=== PATIENT | male | born 1985 | race Caucasian/White ===

== ENCOUNTER 2017-01-07 16:01 | Emergency (ER) | payer SELFPAY | END 2017-01-07 18:35 | disposition left against medical advice (07) | LOC: ER 16:01 | PROC: 2W2TX4Z Dressing of Left Foot using Bandage (ICD-10-PCS; principal; 2017-01-07) | PROC: 2W2SX4Z Dressing of Right Foot using Bandage (ICD-10-PCS; 2017-01-07) | DX: T25.222A Burn of second degree of left foot, initial encounter (principal); T25.221A Burn of second degree of right foot, initial encounter; L03.116 Cellulitis of left lower limb; Z88.6 Allergy status to analgesic agent; F17.200 Nicotine dependence, unspecified, uncomplicated; X08.8XXA Exposure to other specified smoke, fire and flames, initial encounter | CPT/HCPCS: 80048; 85025; 99284; A9270-GY ==

== ENCOUNTER 2017-01-08 10:03 | Emergency (ER) | payer SELFPAY ==
[2017-01-08 08:45] LABS: BASOPHILS 0.3 %; BASOPHILS ABSOLUTE 0.02 10/3/uL (0.0-0.16); EOSINOPHILS 2.8 %; EOSINOPHILS ABSOLUTE 0.18 10/3/uL (0.0-0.53); HEMATOCRIT 41.6 % (40.0-51.0); HEMOGLOBIN 14.6 g/dL (13.6-17.8); IMMATURE GRANULOCYTES 0.2 %; IMMATURE GRANULOCYTES ABSOLUTE 0.01 10/3/uL (0.0-0.11); LYMPHOCYTES 12.5 %; LYMPHOCYTES ABSOLUTE 0.81 10/3/uL (0.67-4.30); MEAN CORPUS HGB CONC 35.1 g/dL (32.0-36.0); MEAN CORPUSCULAR HEMOGLOB 31.9 pg (26.0-34.0); MEAN CORPUSCULAR VOLUME 90.8 fL (80-100); MEAN PLATELET VOLUME 9.4 fL (9.2-13.0); MONOCYTES 14.2 %; MONOCYTES ABSOLUTE 0.92 10/3/uL (0.21-1.20); NEUTROPHILS ABSOLUTE 4.56 10/3/uL (2.02-8.40); PLATELET COUNT 249 10/3/uL (150-400); RBC DISTRIBUTION WIDTH 12.8 % (12.0-16.0); RED CELL COUNT 4.58 10/6/uL (4.7-6.1); WHITE BLOOD CELLS 6.5 10/3/uL (4.5-10.5)
[2017-01-08 08:46] LABS: MANUAL DIFF NO %
[2017-01-08 08:55] LABS: BUN (BLOOD UREA NITROGEN) 8 MG/DL (6-23); CALCIUM, SERUM 8.8 MG/DL (8.5-10.4); CHLORIDE, SERUM 107 MMOL/L (96-112); CO2 (CARBON DIOXIDE) 28 MMOL/L (24-34); CREATININE 0.77 MG/DL (0.70-1.30); GFR AFRICAN AMERICAN 141 ML/MIN (>=60); GFR NON AFRICAN AMERICAN 122 ML/MIN (>=60); GLUCOSE, SERUM 113 MG/DL (60-99); POTASSIUM, SERUM 3.9 MMOL/L (3.5-5.3); SODIUM, SERUM 140 MMOL/L (135-148)
[2017-01-09] MEDS ORDERED: DENIES (05:12)
[2017-01-09] MEDS ORDERED: CENTRUM PO (12:59)
[2017-01-09] MEDS ORDERED: ALKA-SELTZER PO (12:59)
[2017-01-09] MEDS ORDERED: PEPTO BISMOL LIQ1 ML PO (13:00)
[2017-01-09] MEDS ORDERED: OTC REFLUX MED PO (13:00)
[2017-01-09] MEDS ORDERED: NASONEX NAS (13:00)
== END 2017-01-08 13:13 | disposition home or self-care (01) ==
LOC: ER 10:03
PROVIDERS: Nurse Practitioner
PROC: 2W2TX4Z Dressing of Left Foot using Bandage (ICD-10-PCS; principal; 2017-01-08)
PROC: 2W2SX4Z Dressing of Right Foot using Bandage (ICD-10-PCS; 2017-01-08)
DX: T25.221A Burn of second degree of right foot, initial encounter (principal); T25.222A Burn of second degree of left foot, initial encounter; L03.116 Cellulitis of left lower limb; F17.200 Nicotine dependence, unspecified, uncomplicated; Z88.6 Allergy status to analgesic agent; X12.XXXA Contact with other hot fluids, initial encounter
CPT/HCPCS: 80048; 85025; 96374; 96375; 99284; A9270-GY; J1885

== ENCOUNTER 2017-01-09 04:16 | Inpatient (IN) | payer SELFPAY ==
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
[2017-01-09 04:03] LABS: BASOPHILS 0.6 %; BASOPHILS ABSOLUTE 0.04 10/3/uL (0.0-0.16); EOSINOPHILS 3.3 %; EOSINOPHILS ABSOLUTE 0.22 10/3/uL (0.0-0.53); ER CBC TAT 0 Hrs 03 Mins; HEMATOCRIT 39.3 % (40.0-51.0); HEMOGLOBIN 13.8 g/dL (13.6-17.8); IMMATURE GRANULOCYTES 0.1 %; IMMATURE GRANULOCYTES ABSOLUTE 0.01 10/3/uL (0.0-0.11); LYMPHOCYTES 13.2 %; LYMPHOCYTES ABSOLUTE 0.89 10/3/uL (0.67-4.30); MEAN CORPUS HGB CONC 35.1 g/dL (32.0-36.0); MEAN CORPUSCULAR HEMOGLOB 31.9 pg (26.0-34.0); MEAN CORPUSCULAR VOLUME 90.8 fL (80-100); MEAN PLATELET VOLUME 9.3 fL (9.2-13.0); MONOCYTES 16.3 %; NEUTROPHILS 66.5 %; NEUTROPHILS ABSOLUTE 4.47 10/3/uL (2.02-8.40); PLATELET COUNT 233 10/3/uL (150-400); RED CELL COUNT 4.33 10/6/uL (4.7-6.1); WHITE BLOOD CELLS 6.7 10/3/uL (4.5-10.5)
[2017-01-09 04:04] LABS: MANUAL DIFF NO %
[2017-01-09 04:16] LABS: BUN (BLOOD UREA NITROGEN) 11 MG/DL (6-23); CALCIUM, SERUM 8.7 MG/DL (8.5-10.4); CHLORIDE, SERUM 107 MMOL/L (96-112); CO2 (CARBON DIOXIDE) 27 MMOL/L (24-34); CREATININE 0.79 MG/DL (0.70-1.30); GFR AFRICAN AMERICAN 140 ML/MIN (>=60); GFR NON AFRICAN AMERICAN 120 ML/MIN (>=60); GLUCOSE, SERUM 110 MG/DL (60-99); POTASSIUM, SERUM 4.5 MMOL/L (3.5-5.3); SODIUM, SERUM 141 MMOL/L (135-148)
[2017-01-09] MEDS ORDERED: DENIES (05:12)
[2017-01-09 11:06] LABS: BASOPHILS 0.6 %; BASOPHILS ABSOLUTE 0.04 10/3/uL (0.0-0.16); EOSINOPHILS 2.9 %; EOSINOPHILS ABSOLUTE 0.18 10/3/uL (0.0-0.53); HEMATOCRIT 40.6 % (40.0-51.0); IMMATURE GRANULOCYTES 0.2 %; IMMATURE GRANULOCYTES ABSOLUTE 0.01 10/3/uL (0.0-0.11); LYMPHOCYTES 18.2 %; LYMPHOCYTES ABSOLUTE 1.13 10/3/uL (0.67-4.30); MEAN CORPUS HGB CONC 34.5 g/dL (32.0-36.0); MEAN CORPUSCULAR HEMOGLOB 31.6 pg (26.0-34.0); MEAN CORPUSCULAR VOLUME 91.6 fL (80-100); MEAN PLATELET VOLUME 9.5 fL (9.2-13.0); MONOCYTES 13.8 %; MONOCYTES ABSOLUTE 0.86 10/3/uL (0.21-1.20); NEUTROPHILS 64.3 %; NEUTROPHILS ABSOLUTE 3.99 10/3/uL (2.02-8.40); PLATELET COUNT 223 10/3/uL (150-400); RBC DISTRIBUTION WIDTH 13.2 % (12.0-16.0); RED CELL COUNT 4.43 10/6/uL (4.7-6.1); WHITE BLOOD CELLS 6.2 10/3/uL (4.5-10.5)
[2017-01-09 11:07] LABS: MANUAL DIFF NO %
[2017-01-09 11:19] LABS: BUN (BLOOD UREA NITROGEN) 8 MG/DL (6-23); CALCIUM, SERUM 8.5 MG/DL (8.5-10.4); CHLORIDE, SERUM 104 MMOL/L (96-112); CO2 (CARBON DIOXIDE) 30 MMOL/L (24-34); CREATININE 0.82 MG/DL (0.70-1.30); GFR AFRICAN AMERICAN 138 ML/MIN (>=60); GFR NON AFRICAN AMERICAN 119 ML/MIN (>=60); PHOSPHORUS, SERUM 3.4 MG/DL (2.5-4.5); POTASSIUM, SERUM 4.1 MMOL/L (3.5-5.3); SODIUM, SERUM 139 MMOL/L (135-148)
[2017-01-09 11:20] LABS: GLUCOSE, SERUM 135 MG/DL (60-99)
[2017-01-09] MEDS ORDERED: CENTRUM PO (12:59)
[2017-01-09] MEDS ORDERED: ALKA-SELTZER PO (12:59)
[2017-01-09] MEDS ORDERED: PEPTO BISMOL LIQ1 ML PO (13:00)
[2017-01-09] MEDS ORDERED: OTC REFLUX MED PO (13:00)
[2017-01-09] MEDS ORDERED: NASONEX NAS (13:00)
[2017-01-11 06:15] LABS: HEMOGLOBIN 16.5 g/dL (13.6-17.8); MANUAL DIFF YES %; MEAN CORPUS HGB CONC 34.4 g/dL (32.0-36.0); MEAN CORPUSCULAR HEMOGLOB 31.9 pg (26.0-34.0); MEAN CORPUSCULAR VOLUME 92.8 fL (80-100); PLATELET COUNT 239 10/3/uL (150-400); RBC DISTRIBUTION WIDTH 12.7 % (12.0-16.0); RED CELL COUNT 5.17 10/6/uL (4.7-6.1); WHITE BLOOD CELLS 5.4 10/3/uL (4.5-10.5)
[2017-01-11 06:25] LABS: BUN (BLOOD UREA NITROGEN) 10 MG/DL (6-23); CALCIUM, SERUM 9.3 MG/DL (8.5-10.4); CHLORIDE, SERUM 100 MMOL/L (96-112); CO2 (CARBON DIOXIDE) 36 MMOL/L (24-34); CREATININE 0.83 MG/DL (0.70-1.30); GFR AFRICAN AMERICAN 137 ML/MIN (>=60); GFR NON AFRICAN AMERICAN 118 ML/MIN (>=60); GLUCOSE, SERUM 89 MG/DL (60-99); PHOSPHORUS, SERUM 3.7 MG/DL (2.5-4.5); POTASSIUM, SERUM 4.8 MMOL/L (3.5-5.3); SODIUM, SERUM 140 MMOL/L (135-148)
[2017-01-11 07:09] LABS: BAND NEUTROPHILS 2 %; BASOPHILS 1 %; BASOPHILS ABSOLUTE (CALC) 0.05 10/3/uL (0.0-0.16); EOSINOPHILS 9 %; EOSINOPHILS ABSOLUTE (CALC) 0.49 10/3/uL (0.0-0.53); LYMPHOCYTES 23 %; LYMPHOCYTES ABSOLUTE (CALC) 1.24 10/3/uL (0.67-4.30); MONOCYTES 17 %; MONOCYTES ABSOLUTE (CALC) 0.92 10/3/uL (0.21-1.20); PLATELET ESTIMATE ADQ (ADEQUATE); POIKILOCYTOSIS 1+ (5-10/OIF) (0-5/OIF); SEGMENTED NEUTROPHIL (0) 48 %; TEARDROP SHAPED RBCS OCC (0-2/OIF); TOTAL NUCLEATED CELLS 100
[2017-01-11] MEDS ORDERED: LIDOCAINE GEL TOP (11:26)
[2017-01-11] MEDS ORDERED: SILVADINE CREAM TOP (11:27)
== END 2017-01-11 15:53 | disposition home or self-care (01) | DRG 935 ==
LOC: ER 04:16 → 1SO 06:29
PROVIDERS: Hospitalist; Internal Medicine Pulmonary Disease; Nurse Practitioner Acute Care
DX: T25.222A Burn of second degree of left foot, initial encounter (principal); L03.116 Cellulitis of left lower limb; T25.221A Burn of second degree of right foot, initial encounter; F12.90 Cannabis use, unspecified, uncomplicated; F17.210 Nicotine dependence, cigarettes, uncomplicated; L97.529 Non-pressure chronic ulcer of other part of left foot with unspecified severity; F32.9 Major depressive disorder, single episode, unspecified; F43.21 Adjustment disorder with depressed mood; X10.2XXA Contact with fats and cooking oils, initial encounter; Z59.0 Homelessness; Z87.442 Personal history of urinary calculi
CPT/HCPCS: 73590-LT; 80048; 83735; 84100; 85025; 87040; 87070; 87077; 87186; 87205; 87641; 99285; A9270-GY; J1170; J2543; J3370